=== PATIENT | female | born 1950 | race Caucasian/White ===

== ENCOUNTER → 2019-01-30 | Outpatient (CLI) | payer MEDICARE, OTHER ==
[~2019-01-30] MED LIST: GADOBENATE 529MG/1ML 15ML VIAL IVP ONE
--- NOTE | 2019-01-30 13:33 | RADIOLOGY IMAGING REPORT ---
FACILITY: [facility] [place] PATIENT NAME: Olamide Stephens : 1950 MR: [id number] V: [id number] EXAM DATE: ORDERING PHYSICIAN: JF SALTER TECHNOLOGIST: Location: [facility] Patient: Olamide Stephens : 1950 Visit/Account:[id number] Date of Sevice: 01/30/2019 EXAMINATION: MRI Brain without intravenous contrast MRI Brain with intravenous contrast HISTORY: Headache. Dizziness. COMPARISON: None available. TECHNIQUE: Multi-planar, multi-sequence brain MRI was performed before and after IV gadolinium. CONTRAST: 15 mL of IV MultiHance FINDINGS: Brain volume: Normal. Sagittal midline structures: Negative. Ventricles: Negative. Acute ischemic changes: None. Hemorrhage: None. Masses / edema: None. Enhancement: Negative. [place]-white: Negative. White matter: A few T2/FLAIR hyperintensities in the deep white matter bilaterally. Vessels: Negative. Extra-axial: Negative. Calvarium / scalp: Negative. Skull base: Negative. Visualized sinuses / orbits: Negative. Visualized upper neck: Negative. IMPRESSION: 1. No acute intracranial abnormality or mass. 2. Mild chronic white matter disease is nonspecific but most likely represents chronic microvascular ischemia. Report Dictated By: Thom Sandoval MD at 01/30/2019 1:21 PM Report E-Signed By: Thom Sandoval MD at 01/30/2019 1:27 PM WSN:[id number]
== END ==
LOC: MRI 00:42
PROVIDERS: ATTEND Family Medicine
DX: R51 Headache (principal); R42 Dizziness and giddiness; Z91.81 History of falling
CPT/HCPCS: 70553; A9577